=== PATIENT | male | born 1980 | race Caucasian/White ===

== ENCOUNTER 2024-08-24 15:48 | Emergency (ER) | payer OTHER, SELFPAY ==
--- NOTE | ~2024-08-24 | US_ITS ---
EXAM: ABDOMEN ULTRASOUND HISTORY: epigastric pain x5 weeks COMPARISON: None FINDINGS: LIVER: Well-circumscribed focus of increased echogenicity is identified within the right lobe of the liver (likely segment 5) measuring 6.6 x 7.2 x 8.2 mm . Sonographically, this represents a small reynaldo ngioma, however the lack of vascularity renders it atypical for which nonemergent follow-up with cont rast-enhanced MRI (with liver mass protocol) is recommended. The remainder of the liver is otherwise unremarkable in echogenicity and size. The portal vein is patent, demonstrating hepatopedal flow. GALLBLADDER: Multiple stones are identified within the gallbladder, which is otherwise unremarkable. The stones are bulky and mobile. No gallbladder wall thickening or pericholecystic fluid. No sonographic Thapa sign is described. BILE DUCTS: Common bile duct measures 3.6mm. PANCREAS: Limited evaluation of the pancreas secondary to overlying bowel gas IMPRESSION: Cholelithiasis, without sonographic evidence of cholecystitis. Subcentimeter well-circumscribed focus within the right lobe of the liver (likely a benign hemangioma ) for which nonemergent follow-up with contrast-enhanced MRI is recommended to exclude a hyperechoic liver lesion (metastatic or primary). Reviewed, dictated and finalized at location A. IMPRESSION: Cholelithiasis, without sonographic evidence of cholecystitis. Subcentimeter well-circumscribed focus within the right lobe of the liver (like ly a benign hemangioma) for which nonemergent follow-up with contrast-enhanced MRI is recommended to exclude a hyperechoic liver lesion (metastatic or primary ).
[2024-08-24 16:09] VITALS: BP 178/88; PULSE 100; RESP 16; TEMP 36.7; O2SAT 99
--- NOTE | 2024-08-24 16:42 | ED.ABDPAIN ---
HPI - Abdominal Pain General Chief Complaint: Abdominal Pain Stated Complaint: stomach discomfort, acid reflux Time Seen by Provider: 08/24/24 16:07 History of Present Illness HPI narrative: Patient is a 43-year-old male who presents to the ER with 5 weeks of epigastric discomfort. Feels like he may need to belch. Occasionally worsened with eating but occasionally improved with eating. No real radiation. No discoloration stool. No diarrhea. Does not take NSAIDs. He is under moderate distress as he has a child with a tumor that is going to undergo surgery in the near future. Patient reports occasional have sensation of dyspepsia the back was throat. He has not been taking regular antacids. Related Data Allergies Allergy/AdvReac Type Severity Reaction Status Date / Time poison gloria extract AdvReac Intermediate Unknown Verified 08/24/24 16:34 TIDE DETERGENT Allergy Mild Rash Uncoded 08/24/24 16:34 Review of Systems Review of Systems: All systems reviewed & are unremarkable except as noted in HPI and below Constitutional: Constitutional: Reports no additional constitutional complaints Cardiovascular: Cardiovascular: Reports no additional cardiovascular complaints Respiratory: Respiratory: Reports no additional respiratory complaints Gastrointestinal: Gastrointestinal: Reports no additional gastrointestinal complaints Genitourinary: Genitourinary: Reports no additional male genitourinary complaints Exam Narrative: GENERAL: Well-appearing, well-nourished, and in no acute distress. HEAD: Normocephalic, atraumatic. ENT: Mucous membranes moist. CHEST: Clear to auscultation. No respiratory distress. HEART: Regular rate and rhythm. Normal peripheral pulses. ABDOMEN: Soft, nontender, nondistended. EXTREMITIES: Normal range of motion. No edema. SKIN: Warm, dry, no rash. NEURO: Alert and oriented x3. PSYCH: Normal mood and affect. Course Course Emergency Course: Discussed diagnosis and treatment plan. Recommend low-fat diet. Follow up with General surgery. Also discussed hemangioma and need for follow-up with PCP. Vital Signs Vital signs: Vital Signs Temperature 98.0 F 08/24/24 16:09 Pulse Rate 100 08/24/24 16:09 Respiratory Rate 16 08/24/24 16:09 Blood Pressure 178/88 H 08/24/24 16:09 Pulse Oximetry 99 08/24/24 16:09 Temperature 98.0 F 08/24/24 16:09 Pulse Rate 100 08/24/24 16:09 Respiratory Rate 16 08/24/24 16:09 Blood Pressure 178/88 H 08/24/24 16:09 Pulse Oximetry 99 08/24/24 16:09 MDM - Abdominal Pain Lab Data 08/24/24 16:56 08/24/24 16:56 Labs: Lab Results 08/24/24 Range/Units 16:56 WBC 8.6 (4.5-10.0) K/mm3 RBC 6.30 H (4.6-6.20) M/mm3 Hgb 18.3 H (14.0-18.0) g/dL Hct 51.1 (42.0-52.0) % MCV 81.1 (80-100) fl MCH 29.0 (26-34) pg MCHC 35.8 (32-36) g/dl RDW 13.4 (11.5-14.5) % Plt Count 307 (150-375) k/mm3 MPV 9.2 (7.4-10.4) fl Immature Gran % (Auto) 0.4 (0-0.5) % Neut % (Auto) 68.5 (45.5-73.1) % Lymph % (Auto) 21.7 (18.3-44.2) % Concho % (Auto) 7.4 (2.6-8.5) % Eos % (Auto) 1.4 (0-4.4) % Baso % (Auto) 0.6 (0.2-1.2) % Lymph # (Auto) 1.86 (0.9-3.2) K/mm3 Concho # (Auto) 0.6 (0.1-0.6) K/mm3 Eos # (Auto) 0.1 (0-0.3) K/mm3 Baso # (Auto) 0.1 (0.0-0.1) K/mm3 Abs Immat Gran (auto) 0.03 (0.00-0.031) K/mm3 Absolute Neuts (auto) 5.9 (1.3-6.7) K/mm3 Absolute Nucleated RBC 0.000 (0.0-0.012) K/mm3 Nucleated RBC % 0.0 (0.0-0.2) % Sodium 139 (137-145) mmol/L Potassium 3.6 (3.4-5.0) mmol/L Chloride 103 (98-107) mmol/L Carbon Dioxide 25 (22-30) mmol/L Anion Gap 11 (4-12) mmol/L BUN 13 (9-20) mg/dL Creatinine 0.97 (0.7-1.3) mg/dL Estim Creat Clear Calc 93 ml/min Estimated GFR > 60 (59 - ) Glucose 95 (65-110) mg/dL Calcium 9.6 (8.4-10.2) mg/dL Total Bilirubin 0.8 (0.2-1.3) mg/dL AST 26 (17-59) U/L ALT 19 (6-50) U/L Alkaline Phosphatase 74 (38-126) U/L Total Protein 8.0 (6.3-8.2) g/dL Albumin 4.8 (3.5-5.1) g/dL Lipase 85 (23-300) U/L Imaging Data Radiologist's impression: ITS Impressions Upper Quadrant Ultrasound 08/24/24 17:59 IMPRESSION: Cholelithiasis, without sonographic evidence of cholecystitis. Subcentimeter well-circumscribed focus within the right lobe of the liver (likely a benign hemangioma) for which nonemergent follow-up with contrast-enhanced MRI is recommended to exclude a hyperechoic liver lesion (metastatic or primary). Discharge Plan Discharge Clinical Impression: Cholelithiasis Patient Disposition: Home, Self-Care Condition: Stable Instructions: Biliary Colic (ED) Additional Instructions: Return to the emergency department if you develop severe abdominal pain, severe nausea and vomiting to the point where you are unable to keep down fluids, if you develop chest pain or difficulty breathing, blood in your stool, dizziness or fainting, or if you develop any other new or concerning symptoms as these could be signs of more serious medical illness. Try to stay well hydrated. Patient Language: Greek Prescriptions: New hydrocodone-acetaminophen 5-325 mg tablet 1 tablet PO Q6H PRN (Reason: pain) Qty: 10 0RF ondansetron 4 mg tablet,disintegrating 4 mg PO Q6H PRN (Reason: nausea and vomiting) Qty: 10 0RF Follow-up/Referrals: PHYSICIAN,[employer] MANAGER [Primary Care Provider] - Raffi Casas DO [Physician] -
[2024-08-24 17:01] LABS: Basophils Absolute Auto 0.1 K/mm3 (0.0-0.1); Basophils Percent Auto 0.6 % (0.2-1.2); Eosinophils Absolute Auto 0.1 K/mm3 (0-0.3); Eosinophils Percent Auto 1.4 % (0-4.4); Hematocrit 51.1 % (42.0-52.0); Hemoglobin 18.3 g/dL (14.0-18.0); Immature Granulocyte Absolute 0.03 K/mm3 (0.00-0.031); Immature Granulocyte Percent A 0.4 % (0-0.5); Lymphocytes Absolute Auto 1.86 K/mm3 (0.9-3.2); Lymphocytes Percent Auto 21.7 % (18.3-44.2); Mean Corpuscular HGB Conc 35.8 g/dl (32-36); Mean Corpuscular Volume 81.1 fl (80-100); Mean Platelet Volume 9.2 fl (7.4-10.4); Monocytes Absolute Auto 0.6 K/mm3 (0.1-0.6); Monocytes Percent Auto 7.4 % (2.6-8.5); Neutrophils Absolute Auto 5.9 K/mm3 (1.3-6.7); Neutrophils Percent Auto 68.5 % (45.5-73.1); Platelet Count Result 307 k/mm3 (150-375); Red Cell Distribution Width 13.4 % (11.5-14.5); White Blood Count 8.6 K/mm3 (4.5-10.0)
--- OUTSIDE RECORDS SUMMARY | 2024-08-24 17:13 | XMS_ITS | Data Portability ---
Author Organization [place] [facility] [employer] , [facility] [facility] Address [address] [place] [address] Assessment No assessment recorded. Plan of Treatment Reminders Order Date Submit Date Provider Last Modified By Organization Details Last Modified Time Details Appointments None recorded. Lab None recorded. Referral None recorded. Procedures None recorded. Surgeries None recorded. Imaging None recorded. Medication Orders amoxicillin 875 mg-potassiu m clavulanate 125 mg tablet 2024 025 [facility]/Pharmacy #[id number], [id number], [place], [address], 17:10:22 Patient TargetsNo targets recorded. Patient Instructions Encounter Date Encounter Id Patient Instructions Last Modified By Organization Details Last Modified Time 07/25/2024 [id number] Summary of Today's Visit: We discussed your symptoms of persistent stuffy nose, sore ear, and post-nasal drip that have been ongoing since May, along with recent nausea after meals. You expressed concern about possible strep throat, which improved on its own. The current issues include significant pressure and soreness in the right ear, while post-nasal drip is triggering occasional coughs. Treatment Plan: To address what seems to be bacterial sinusitis, you will start a course of antibiotics. You will take Augmentin twice a day for 7 days. It is important to drink lots of fluids to help manage your symptoms and continue using Flonase. In addition, you are advised to take Claritin or Zyrtec to assist in drying up the post-nasal drip. Pharmacy and Follow-Up: Your prescription for Augmentin will be sent to the [facility] on [address]. Please begin the medication regimen as instructed. If your symptoms persist or worsen, or if you experience any new symptoms, please reach out to us for further guidance. [email or web address] Not available 07/25/2024 17:10:20 Reason for Referral None Reported. Medical Equipment None Reported. Allergies No known drug allergies Medications Name Sig Start Date Stop Date Status Note LastModified by Organization Details LastModified Time prednisone 50 mg tablet active [NOT TAKIN G] Not Available Not Available Not Available amoxicillin 875 mg-potasscarlosu m clavulanate 125 mg tablet Take 1 tablet every 12 hours by oral route for 7 days. 2024 active Not Available Not Available Not Avai lable UNLISTED MEDICATION [Migrated medicatio n name:] Albuterol 90 mcg/inh aerosol:: active [NOT TAKIN G] Not Available Not Available Not Available UNLISTED MEDICATION [Migrated medicatio n name:] Azithromy wolfgang 250 mg tablet:: active [NOT TAKIN G] Not Available Not Available Not Available UNLISTED MEDICATION [Migrated medicatio n name:] Amoxicill in 500 mg capsule:: 500 mg 02/15 completed Not Available Not Available Not Available Vitals None Recorded Social History None recorded. Functional Status None recorded. Mental Status None recorded. Family History Nothing Reported. Medical History No medical history recorded. Past Encounters Encounter ID Performer Location Encounter Start Date Encounter Closed Date Diagnosis/Indication Diagnosis SNOMED-CT Code Diagnosis ICD10 Code Diagnosis Note [id number] ABIODUN Milian [facility] [address] [place] [address] 07/25/2024 17:04:11 07/25/2024 17:15:07 Acute bacterial sinusitis [id number] J01.90 Ddx: Bacterial Sinusitis, Viral Sinusitis, Viral URI, Influenza, COVID-19 Bacterial sinusitis - supported by symptoms of stuffy nose, post-nasal drip, ear pressure, and sore right ear. - Prescribed Augmentin, to be taken twice a day for 7 days.- Advised to drink lots of fluids.- Continue using Flonase.- Continue using Claritin or Zyrtec for post-nasal drip.- Prescripti on sent to [facility]. Counseled on the importance of follow up if symptoms not improving with recommende d treatment plan. Patient to be seen for repeat evaluation if symptoms worsen, counseled on red flag symptoms to indicate need for emergent follow up. Patient expressed understand ing and agreement with treatment plan as outlined. Health Concerns Section Related Observation LastModified by Organization Detai ls LastModified Time None Recorded Concern Status LastModified by Organization Details LastModified Time None Recorded Advance Directives Directive None Recorded Payers Encounter Date Sequence Insurance Name Policy Number Policy Bonilla Covered Member ID Bonilla Member ID Guarantor Name 07/25/2024 1 [facility] [id number] Aye Cline [id number] Aye Cline 07/25/2024 3 *SELF PAY* [id number] Aye Cline [id number] Aye Cline Notes Date Note Type Note Provider Name and Address Organization Details Recorded Time 07/25/2024 text/html Call connected, patient greeted. Patient name, , telephone number, and location verified verbally with the patient. Telemedicine limitations reviewed, answered all questions the patient had about the telehealth interaction, and verbal consent obtained to treat. Clinician attests they are physically located in the following state at the time of visit: [place] The patient also consents to the use of [employer] technology CC: Persistent nasal congestion and nausea HPI: The patient reports experiencing intermittent illness since mid-May, with symptoms fluctuating over time. The initial episode involved significant throat swelling, resembling strep throat, which subsequently resolved without medical intervention. Currently, the patient suffers from persistent nasal congestion and post-nasal drip that triggers occasional coughs. Over the past three weeks, the patient has noted a constant aching sensation inside the right ear, exacerbated by blowing their nose. This pain is absent in the left ear. Additionally, the patient experiences nausea after meals, regardless of food type, although they have not vomited. The stool remains normal in color and consistency with no signs of blood. Although the severity of the symptoms fluctuates, there has been no significant improvement over the past three weeks. The patient admits to having attempted self-management with the original formulation of Mucinex, which helped some of the symptoms to drain but the nasal congestion and right ear pain persist. Reportedly, the ear pressure intensifies upon nose blowing. The patient denies having a fever or vomiting. There is a known exposure to potential pathogens via a svcx-cucs-ioc child attending preschool who may bring illnesses home. ABIODUN Milian [address] [facility] [address], [place], [address], [facility] 07/25/2024 17:11:44
--- OUTSIDE RECORDS SUMMARY | 2024-08-24 17:13 | XMS_ITS | Clinical Summary ---
Author Organization [facility] Address [address] [place] [address] Care Team Providers Care Mold Sprayer Name Role Phone Unavailable Primary Care Provider Unavailabl e Source Comments [facility],non-owned Affiliates and Associated Physician Practices is amultiple site organization consisting of ambulatory clinics and hospital sitesin [place], [place], [place] and [place]. This disclosure is being madepursuant to the Care Everywhere program and may not contain all information available regarding this patient. Last updated 18.[facility] Allergies No known active allergies Medications * Be aware that medications may not be up to date on this document. Alwaysverify current medications with the patient. Medication Sig Dispensed Refills Start Date End Date Status triamcinolone acetonide (KENALOG) 0.1 % cream Apply to affected area 2 times daily 80 g 01/28/2019 Active Social History Tobacco Use Types Packs/Day Years Used Date Smoking Tobacco: Never Smokeless Tobacco: Never Sex and Gender Information Value Date Recorded Sex Assigned at Not on file Gender Identity Not on file Sexual Orientation Not on file Last Filed Vital Signs Vital Sign Reading Time Taken Comments Blood Pressure 148/90 01/28/2019 9:27 AM CDT Pulse 107 01/28/2019 9:27 AM CDT Temperature 37.7 C (99.9 F) 01/28/2019 9:27 AM CDT Respiratory Rate 19 01/28/2019 9:27 AM CDT Oxygen Saturation 98% 01/28/2019 9:27 AM CDT Inhaled Oxygen Concentration - - Weight 83.9 kg (185 lb) 01/28/2019 9:27 AM CDT Height 167.6 cm (5' 6 ) 01/28/2019 9:27 AM CDT Body Mass Index 29.86 01/28/2019 9:27 AM CDT Plan of Treatment Health Maintenance Due Date Last Done Comments LIPID TESTING 1982 HIV SCREENING 1997 HEPATITIS C SCREENING 10/20/2000 DTAP/TDAP/TD VACCINES (1 - Tdap) 2001 HEPATITIS B VACCINE (1 of 3 - 19+ 3-dose series) 2001 COVID-19 VACCINE (1 - 2023-2 5 season) 2024 INFLUENZA VACCINE (#1) 2024 DEPRESSION SCREENING 05/26/2024 ZOSTER VACCINE (1 of 2) 2032 HIB VACCINE Aged Out No longer eligi ble based on patient's age to complete this topic HPV VACCINE Aged Out No longer eligi ble based on patient's age to complete this topic MENINGOCOCCAL (Group B) VACC INE SHARED DECISION-MAKING Aged Out No longer eligibl e based on patient's age to complete this topic MENINGOCOCCAL GROUPS A/C/Y/W VACCINE Aged Out No longer eligible b ased on patient's age to complete this topic PNEUMOCOCCAL VACCINE Aged Out No long er eligible based on patient's age to complete this topic
[2024-08-24 17:22] LABS: Alanine Aminotransferase 19 U/L (6-50); Albumin Level 4.8 g/dL (3.5-5.1); Alkaline Phosphatase 74 U/L (38-126); Anion Gap 11 mmol/L (4-12); Aspartate Amino Transferase 26 U/L (17-59); Bilirubin,Total 0.8 mg/dL (0.2-1.3); Blood Urea Nitrogen 13 mg/dL (9-20); Calcium 9.6 mg/dL (8.4-10.2); Carbon Dioxide 25 mmol/L (22-30); Chloride 103 mmol/L (98-107); Estimated CRCL calculation 93 ml/min; Estimated Glomerular Filt Rate > 60; Glucose 95 mg/dL (65-110); Lipase 85 U/L (23-300); Potassium 3.6 mmol/L (3.4-5.0); Sodium 139 mmol/L (137-145)
--- OUTSIDE RECORDS SUMMARY | 2024-08-24 18:00 | XMS_ITS | Clinical Summary ---
Author Organization [facility] Address [address] [place] [address] Care Team Providers Care Osd Clerk Name Role Phone Unavailable Primary Care Provider Unavailabl e Source Comments [facility],non-owned Affiliates and Associated Physician Practices is amultiple site organization consisting of ambulatory clinics and hospital sitesin [place], [place], [place] and [place]. This disclosure is being madepursuant to the Care Everywhere program and may not contain all information available regarding this patient. Last updated 18.[facility] Allergies No known active allergies Medications * [...]
[2024-08-24 18:34] VITALS: BP 164/79; PULSE 92; RESP 20; TEMP 36.4; O2SAT 98
== END 2024-08-24 18:36 | disposition home or self-care (01) ==
PROVIDERS: Emergency Provider Emergency Medicine
DX: K80.20 Calculus of gallbladder without cholecystitis without obstruction (principal)
CPT/HCPCS: 36415; 76705; 80053; 83690; 85025; 99284